=== PATIENT | female | born 1995 | race Hispanic/Latino ===

== ENCOUNTER 2019-01-26 20:45 | Emergency (ER) | payer OTHER ==
[~2019-01-26] VITALS: Ht 162.6 cm; Wt 72.6 kg
[2019-01-26] MEDS ORDERED: ONDANSETRON HCL INJ 2MG/ML 2ML 2 MG/ML VIAL IV STA (21:25)
[2019-01-26] MEDS ORDERED: SODIUM CHLORIDE 0.9% 1000ML 1,000 ML IV SCH (21:30)
[2019-01-26] MEDS ORDERED: ONDANSETRON HCL INJ 2MG/ML 2ML 2 MG/ML VIAL ONE (21:38)
[2019-01-26] MEDS ORDERED: ONDANSETRON HCL INJ 2MG/ML 2ML 2 MG/ML VIAL IV ONE (21:45)
--- NOTE | 2019-01-27 00:12 | Diagnostic Imaging Report ---
EXAM: First Trimester Obstetric Pelvic Ultrasound INDICATION: Abdominal pain, nausea COMPARISON: None TECHNIQUE: Grayscale transverse and sagittal transabdominal and transvaginal images were obtained of the pelvis. Transvaginal imaging was medically necessary to better evaluate the endometrium, adnexa, and fetus. CLINICAL HISTORY: 23 year old G1 P 0 Last menstrual period: 12/09/2018 Clinical gestational age: 6 weeks 6 days FINDINGS: Uterus: Orientation: Normal Size: 5.9 x 4.2 x 6 cm, enlarged Mass: None Cervix: Normal Gestational Sac: Location: Intrauterine Average sac diameter: 1.88 cm Estimated sonographic GA: 6 weeks 2 day Appearance: Normal in contour Subchorionic hemorrhage: Small, 1 cm Yolk sac: Normal Embryo/Fetus: [employer] rump length: 0.54 cm Estimated sonographic GA: 6 weeks 2 days Cardiac activity: 120 bpm Right ovary Size: 2.6 x 2.2 x 2.3 cm Mass/Cyst: None Left ovary Size: 2.1 x 0.9 x 1.5 cm Mass/Cyst: None Cul-de-sac: No free fluid IMPRESSION: 1. Viable intrauterine : Routine followup. Small subchorionic hemorrhage. 2. Estimated sonographic gestational age: 6 weeks 2 days CLASSIFICATION Viable: can potentially result in a liveborn baby Visualized embryo with FHT Nonviable: Findings diagnostic of failure * Ectopic * CRL >= 7 mm and no FHT * MSD >= 25 mm and no embryo * No FHT >= 2 weeks after US showed GS w/o YS * No FHT >= 11 days after US showed GS w/ YS Intrauterine of uncertain viability: Intrauterine GS with no FHT and no definite findings of failure of unknown location: Positive urine or serum test and no IUP or ectopic on US Diagnostic Criteria for Nonviable Early in the First Trimester N Engl J Med 2013;369:1443-51. DOI: [id number] Signed by: Isaac Dawson DO on 01/27/2019 12:09 AM
== END 2019-01-26 23:25 | disposition home or self-care (01) ==
LOC: FSED 20:45
DX: O21.1 Hyperemesis gravidarum with metabolic disturbance (principal); Z3A.01 Less than 8 weeks gestation of pregnancy
CPT/HCPCS: 76817; 80048; 81003; 81025; 85025; 99284; J2405; J7030

== ENCOUNTER 2021-02-03 13:59 | Emergency (ER) | payer OTHER ==
[~2021-02-03] VITALS: Ht 162.6 cm; Wt 77.6 kg
[2021-02-03] MEDS ORDERED: THERAFLU FLU &1 EAC1 PO (14:56)
[2021-02-03] MEDS ORDERED: AZITHROMYCIN250 MG PO (14:56)
[2021-02-03] MEDS ORDERED: ZOFRAN4 MG PO (14:56)
== END 2021-02-03 15:34 | disposition home or self-care (01) ==
LOC: FSED 14:09
DX: R05 Cough (principal); R11.2 Nausea with vomiting, unspecified; J40 Bronchitis, not specified as acute or chronic; B34.9 Viral infection, unspecified; Z71.89 Other specified counseling
CPT/HCPCS: 99283